=== PATIENT | female | born 2005 | race Caucasian/White ===

== ENCOUNTER 2024-09-13 14:37 | Emergency (ER) | payer BC, SELFPAY ==
[2024-09-13] VITALS (8 sets, daily range): BP systolic 107–139; BP diastolic 69–98; BMI 25.8
[2024-09-13] MEDS: ZOFRAN ODT (ORALLY DISINTEGRATING) 4 MG PO ×2 (14:59→18:23)
[2024-09-13 15:05] LABS: % Basophils 0.2 % (0-2); % Eosinophils 0.1 % (0-6); % Immature Granulocytes 0.3 % (0-0.5); % Lymphocytes 2.5 % (20.5-51.1); % Neutrophils 94.9 % (42.2-75.2); Absolute Immature Granulocytes 0.1 10^3/uL (0-0.05); Absolute Lymphocytes 0.5 10^3/uL (1.2-3.4); Absolute Monocytes 0.4 10^3/uL (0.1-0.6); Hematocrit 45.5 % (37.0-47.0); Hemoglobin 15.6 g/dL (12.0-16.0); Mean Corp Hgb Conc. 34.3 g/dL (33.0-37.0); Mean Corpuscular Hgb 28.3 pg (27.0-31.0); Mean Corpuscular Volume 82.4 fL (81.0-99.0); Mean Platelet Volume 10.4 fL (7.4-10.4); Nucleated Red Blood Cells % 0 %; Platelet Count 242 10^3/uL (130-400); Red Blood Cell Count 5.52 10^6/uL (4.20-5.40); Red Cell Dist. Width 12.8 % (11.5-14.5); White Blood Cell Count 18.9 10^3/uL (4.8-10.8)
[2024-09-13 15:17] LABS: ALT (SGPT) 31 U/L (0-35); AST (SGOT) 28 U/L (14-36); Albumin 5.2 g/dl (3.5-5.0); Alkaline Phosphatase 51 U/L (38-126); Blood Urea Nitrogen 20 mg/dl (7-17); Calcium 10.2 mg/dl (8.4-10.2); Carbon Dioxide 19 mmol/L (22-30); Chloride 103 mmol/L (98-107); Estimated Creatinine Clearance 110 ml/min; Glucose 109 mg/dl (70-99); Potassium 4.2 mmol/L (3.5-5.1); Sodium 137 mmol/L (135-145); Total Bilirubin 1.8 mg/dl (0.2-1.3); Total Protein 8.8 g/dl (6.3-8.2); eGFR > 60.00
[2024-09-13 16:08] LABS: HCG, Serum Qualitative Screen Negative
[2024-09-13 16:49] LABS: Lipase 97 U/L (23-300)
--- NOTE | 2024-09-13 18:05 | ED.GENMED ---
History of Present Illness
General
Chief Complaint: Abdominal Symptoms
Source: patient
Exam Limitations: none
Time Seen by Provider: 09/13/24 17:54
History of Present Illness
History of Present Illness:
This is a 19 year old female that comes in with c/o abd pain. State that she has had left sided abd pain for the past 2 weeks. State that it had subsided and then it came back. States that today she is vomiting and had diarrhea. State that it is a
stabbing pain. States that she has had chest discomfort after vomiting. States that she had diarrhea 3-4 times today. States that she also has a headache. Denies any fever, chills, SOB, dizziness, urinary burning.
Past History
Past History
ED Past Medical History: Asthma; Negative HTN, Hypercholesterolemia or NIDDM
ED Past Surgical History: None
Social History
Tobacco: Non-smoker
Alcohol: Occasional
Personal: Single
Living: with family
Review of Systems
Review of Systems
All Other Systems: ROS reviewed and negative except as documented in HPI and ROS
Constitutional: Reports no symptoms; Denies fever or chills
EENT: Reports no symptoms
Respiratory: Denies cough or trouble breathing
Cardiac: Reports chest pain
ABD/GI: Reports abdominal pain, nausea, vomiting and diarrhea
: Reports no symptoms; Denies dysuria, frequency or urgency
Musculoskeletal: Reports no symptoms
Neurological: Reports headache; Denies dizzy
Psychiatric: Reports no symptoms
Phy Exam
General Physical Exam
General Presentation: mild distress
General age: appears stated age
General Skin: warm and dry
General Habitus: normal
General Mental: alert
General Hydration: appears well hydrated
ENT Exam
ENT Exam: TM's normal, pharynx normal and neck supple
Eye Exam
Eye Exam: EOMI
Cardiovascular Exam
Cardiovascular Exam: regular rate/rhythm, no edema, no murmur and normal peripheral pulses
Pulmonary Exam
Pulmonary Exam: lungs clear, no respiratory distress, no rales, chest non tender, no crackles, no rhonchi, no wheezing and no cough
Gastrointestinal Exam
Gastrointestinal Exam: normal bowel sounds, soft, no organomegaly, no pulsatile mass, non distended and tender (Left sided and upper abd tenderness with palpation)
Musculoskeletal Exam
Musculoskeletal Exam: full ROM and no edema
Skin Exam
Skin Exam: normal color, warm/dry, no rash and no petechia
Psychiatric Exam
Psychiatric Exam: normal mood/affect
Course
Orders/Labs/Results
Orders:
Orders
09/13/24 14:48
Electrocardiogram (*1) Urgent
Reason for Study: Tachycardia
EKG- Treatment ONCE
09/13/24 14:56
Complete Blood Count/With Diff Urgent
Comprehensive Metabolic Panel Urgent
HCG, Serum Qualitative Screen Urgent
Comment: ADD ON
Lipase Urgent
Comment: ADD ON
09/13/24 14:57
Ondansetron Orally Disint [Zofran Odt (Orally Disintegrating)] 4 mg .ROUTE .STK-MED ONE
09/13/24 14:58
Ondansetron Orally Disint [Zofran Odt (Orally Disintegrating)] 4 mg PO NOW STA
09/13/24 15:00
Add On- LAB Urgent
Tests Added?: lipase, serum hcg qual
09/13/24 16:00
Ondansetron Orally Disint [Zofran Odt (Orally Disintegrating)] 4 mg PO Q8
09/13/24 18:05
CT Abd/pel W Iv And Oral Contr Urgent
Comment:
Reason For Exam: Left sided and upper abd pain
0.9% Sodium Chloride 1000 ml [Nss] 1,000 ml IV BOLUS
Iohexol [Omnipaque] See Protocol PO NOW STA
Ketorolac [Toradol] 30 mg IV NOW STA
09/13/24 20:07
Urinalysis Reflex To Culture Urgent
Date Specimen was Collected: 09/13/24
Time Specimen was Collected: 20:03
Urine Microscopic Reflex Cult Urgent
Urine Culture Urgent
LOUIS Source: U
Specimen Description:
Date Specimen was Collected: 09/13/24
Time Specimen was Collected: 20:03
Abnormal Lab Results
09/13/24 09/13/24
14:56 20:07
WBC 18.9 H 10^3/uL
(4.8-10.8)
RBC 5.52 H 10^6/uL
(4.20-5.40)
Abs Immat Gran (auto) 0.1 H 10^3/uL
(0-0.05)
Absolute Neuts (auto) 18.0 H 10^3/uL
(1.4-6.5)
Absolute Lymphs (auto) 0.5 L 10^3/uL
(1.2-3.4)
Neutrophils % 94.9 H %
(42.2-75.2)
Lymphocytes % 2.5 L %
(20.5-51.1)
Carbon Dioxide 19 L mmol/L
(22-30)
BUN 20 H mg/dl
(7-17)
Glucose 109 H mg/dl
(70-99)
Total Bilirubin 1.8 H mg/dl
(0.2-1.3)
Total Protein 8.8 H g/dl
(6.3-8.2)
Albumin 5.2 H g/dl
(3.5-5.0)
Urine Ketones 3+ A
(Negative)
Urine Bilirubin 1+ A
(Negative)
Leukocyte Esterase Rfl 1+ A
(Negative)
Urine WBC (Reflex) 11-15 A /HPF
(0-5)
Urine Bacteria (Reflex) Moderate A
(Negative)
09/13/24 14:56
09/13/24 14:56
Leukocytosis, carbon dioxide slightly low. Glucose nonfasting. Total krystian elevation. Total protein slightly elevated. Albumin slightly low. Lipase normal at 97, HCG negative.
Vital Signs
Initial and Last Documented VS:
Initial Vital Signs
Temp Pulse Resp BP Pulse Ox
97.4 F 126 18 138/82 99
09/13/24 14:43 09/13/24 14:43 09/13/24 14:43 09/13/24 14:43 09/13/24 14:43
Last Documented Vital Signs
Temp Pulse Resp BP Pulse Ox
99.7 F 93 20 121/81 97
09/13/24 18:00 09/13/24 18:15 09/13/24 18:15 09/13/24 18:06 09/13/24 18:00
MDM/Problems Addressed
Differential Diagnosis Includes:
Diverticulitis, Colitis, Enteritis
MDM/Problems Addressed:
This is a 19 year old female that comes in with c/o left sided abd pain. States that this has been going on for 2 weeks and it is a stabbing pain. Today she started with vomiting and diarrhea.
Will check labs, CT scan, Give IV fluids and pain medication. Will also get Urine.
back into see patient and mom. Reviewed CT findings. Will place patient on Levaquin and Flagyl as patient is allergic to PCN. Patient has an appointment with a Gi specialist on , Dr Huber. Offered patient admission but would rather go home.
Patient to stay away form milk and milk products as long as she has diarrhea. Encouraged patient to increase her water intake to 8-8oz glasses daily. Chicken, rice and potatoes are easily digested. Return with increased or changing pain, fever, or
any other concerns.
Chronic conditions affecting care:
NA
Acute Exacerbation and/or Progression of Chronic Illness:
NA
*Radiology
Radiology exam reviewed: radiology read reviewed (CT-Mild circumferential wall thickening throughout the sigmoid colon and rectum consistent with an acute Proctocolitis. Diagnostic possibilities are (1) an acute infectious colitis or (2) acute
ulcerative colitis. Mild hepatomegaly.)
*Pulse Oximetry
Patient hypoxic: no
*EKG
Interpreted by ED Provider?: NA
Rate: EKG- N/A
*Graphic Art Designer Interpretation
Rate: Graphic Art Designer- N/A
*Critical Care Note
Total Time (30-74mins, 75-104mins- exclusive of procedures): Not Applicable
ED Attending Note
-
Portions of this chart may have been created with voice recognition software.� Occasional wrong word or��sound alike� substitutions may have occurred due to the inherent limitations of voice recognition software.
Discharge Plan
Departure
Patient Disposition: Home (Routine Discharge)
Date of Disposition: 09/13/24
Time of Disposition: 22:22
Patient with high blood pressure during this ER visit?: No
Condition: Good
Covid-19: Not Applicable
Discharge Problem:
Colitis
Instructions: Colitis - Discharge instructions
Prescriptions:
New
levofloxacin 500 mg tablet
500 mg PO DAILY Qty: 9 0RF
metronidazole 500 mg tablet
500 mg PO TID Qty: 29 0RF
ondansetron 4 mg tablet,disintegrating
4 mg PO Q8H PRN (Reason: nausea and vomiting) Qty: 10 0RF
Referrals:
Iram Pittman MD [Family Provider] -
Activity Restrictions/Additional Instructions:
As discussed, your blood work shows you have an elevation of the white blood cell. This goes along with the CT findings of Colitis and a Urinary tract infection. Please increase your water intake to 8-8oz glasses daily. Stay way from milk and milk
products as long as you have diarrhea as this is hard for the gut to digest. You may eat Chicken, rice and potatoes as these are easily digested. You have been started on antibiotics here and Three prescriptions have been sent to your pharmacy.
There is a prescription for Zofran that helps with nausea and vomiting, one for Flagyl and Levaquin. Follow up with the GI specialist on as scheduled. IF YOU HAVE INCREASED OR CHANGING PAIN, FEVER, OR YOU HAVE ANY OTHER CONCERNS PLEASE
RETURN TO THE EMERGENCY ROOM.
Interventions
Interventions:
*Risk Screen - Suicide Last Done: 09/13/24 14:43
*General Assessment Last Done: 09/13/24 18:18
*Neglect/Abuse Screening Last Done: 09/13/24 14:43
*ED COVID-19 Vaccine History Last Done: 09/13/24 14:43
[facility] Assessment Last Done: 09/13/24 18:18
Discharge Date and Time
Print Language: CZECH
[2024-09-13] MEDS: TORADOL 30 MG IV (18:23)
[2024-09-13] MEDS: OMNIPAQUE 50 ML PO (18:23)
[2024-09-13] MEDS: NSS 1000 IV (18:24)
[2024-09-13 20:35] LABS: Urine Albumin Trace (Neg - Trace); Urine Bilirubin 1+ (Negative); Urine Character Clear (Clear); Urine Color Amber; Urine Glucose Negative (Negative); Urine Ketone 3+ (Negative); Urine Leukocyte 1+ (Negative); Urine Nitrite Negative (Negative); Urine Occult Blood Negative (Negative); Urine Specific Gravity 1.025 (<1.030); Urine Urobilinogen Negative (Neg - 1+)
[2024-09-13 21:02] LABS: Urine Red Blood Cell 0-2 /HPF (0-2)
[2024-09-13 21:03] LABS: Urine Amorphous Seen; Urine Bacteria Moderate (Negative); Urine Calcium Oxalate Crystals Present
[2024-09-13] MEDS: LEVAQUIN 500 MG PO (22:41)
[2024-09-13] MEDS: FLAGYL 500 MG PO (22:41)
== END 2024-09-13 22:57 | disposition home or self-care (01) ==
LOC: EMR 14:37
PROVIDERS: Clinical Nurse Specialist Family Health; Emergency Medicine; EMERGENCY PHYSICIAN Student in an Organized Health Care Education/Training Program; FAMILY PHYSICIAN Family Medicine
DX: K52.9 Noninfective gastroenteritis and colitis, unspecified (principal); J45.909 Unspecified asthma, uncomplicated
CPT/HCPCS: 96374; 96361; 99284; 74177; 80053; 81003; 81015; 83690; 84703; 85025; 87086; 93005; Q9967

== ENCOUNTER → 2024-10-19 10:31 | Outpatient (REF) | payer BC, SELFPAY | LOC: RAD 10:31 | PROVIDERS: ATTENDING PHYSICIAN Specialist; FAMILY PHYSICIAN Family Medicine | DX: R10.30 Lower abdominal pain, unspecified (principal); Z83.79 Family history of other diseases of the digestive system | CPT/HCPCS: 74177; Q9967 ==